=== PATIENT | male | born 1950 | race Caucasian/White ===

== ENCOUNTER 2021-10-11 16:12 | Emergency (ER) | payer OTHER ==
[~2021-10-11] VITALS: Ht 175.3 cm; Wt 104.3 kg
[~2021-10-11 16:12] MED LIST: LISI20TA28; METF-370
[2021-10-11] MEDS ORDERED: SODIUM CHLORIDE 0.9% 1,000 ML IV ONE (16:30)
[2021-10-11 16:40] VITALS: BP 120/69
== END 2021-10-11 21:15 | disposition left against medical advice (07) ==
LOC: ER 16:12 → EDBD 16:12 → ER 21:15
DX: F10.129 Alcohol abuse with intoxication, unspecified (principal); R55 Syncope and collapse; Y90.9 Presence of alcohol in blood, level not specified; E11.9 Type 2 diabetes mellitus without complications; I10 Essential (primary) hypertension; E78.5 Hyperlipidemia, unspecified; Z53.29 Procedure and treatment not carried out because of patient's decision for other reasons
CPT/HCPCS: 93005